=== PATIENT | female | born 1990 | race Hispanic/Latino ===

== ENCOUNTER 2019-10-26 00:50 | Inpatient (IN) | payer OTHER ==
[2019-10-28] MEDS ORDERED: Ringers Lactate 1,000 ML IV PRN (05:02)
[2019-10-28] MEDS ORDERED: METHYLERGONOVINE 0.2MG/ML AMP IM PRN (05:02)
[2019-10-28] MEDS ORDERED: PENICILLIN 5 MU in NA CHLORIDE 0.9% 100 ML IV ONE (05:02)
[2019-10-28] MEDS ORDERED: BUTORPHANOL 1 MG/ML INJ IV PRN (05:02)
[2019-10-28] MEDS ORDERED: MEPERIDINE HCL 25 MG/0.5 ML IV PRN (05:02)
[2019-10-28] MEDS ORDERED: PROMETHAZINE INJ 25 MG/ML AMP IM PRN (05:02)
[2019-10-28] MEDS ORDERED: CARBOPROST TROME 250 MCG/ML IM PRN (05:02)
[2019-10-28 05:25] VITALS: BMI 25.4
[2019-10-28 05:30] LABS: Urine Appearance CLEAR; Urine Bilirubin NEGATIVE (NEG); Urine Blood NEGATIVE (NEG); Urine Color YELLOW; Urine Glucose NEGATIVE (NEG); Urine Protein NEGATIVE (NEG); Urine Specific Gravity 1.015 (1.005-1.030)
[2019-10-28 05:31] LABS: Absolute Lymphocytes (CBC) 1.5 K/uL (0.7-4.9); Basophils % 0.3 % (0-1.3); Hematocrit 29.8 % (36.0-45.0); Lymphocytes % 19.6 % (15.3-44.8); MPV 7.3 fL (7.6-11.3); RBC Red Blood Cell Count 3.11 M/uL (3.86-4.86)
[2019-10-28 05:41] LABS: Urine Microscopic Reflex NO UMIC
[2019-10-28] MEDS ORDERED: OXYTOCIN/LR 20 UNIT/1,000 ML BAG IV SCH ×2 (06:00→15:00)
[2019-10-28] MEDS ORDERED: Ringers Lactate 1,000 ML IV SCH (06:00)
--- NOTE | 2019-10-28 09:00 | PREOPHP ---
Date of Admission: 10/28/2019 29-year-old 3, para 2, patient is at 39 weeks and 3 to 4 days. She is noted to be breech pre sentation earlier in the week but exam yesterday showed the baby had converted to vertex. It was dec ided to proceed with delivery as soon as possible before the baby will shift again. FHTs look normal and reactive. She is Rh positive, immune to Rubella. She has positive beta strep screen and will b e given penicillin during the labor, 1.5 cm this morning. Vertex well applied, -2 station. Rupture of membranes, clear fluid. Labor talk given. Patient will probably be requesting epidural later in the labor. PIEDAD/GLENDY Voice ID: [id number]
[2019-10-28] MEDS ORDERED: FENTANYL CITR 100 MCG/2 ML IV ONE (09:02)
[2019-10-28] MEDS ORDERED: ROPIVACAINE HCL 100 ML IV ONE (09:03)
[2019-10-28] MEDS ORDERED: ROPIVACAINE HCL 2 MG/ML 100ML IV ONE (09:05)
[2019-10-28] MEDS ORDERED: PENICILLIN 2.5 MU in NA CHLORIDE 0.9% 100 ML IV SCH (09:30)
[2019-10-28] MEDS ORDERED: LIDOCAINE 1% 20 ML MDV ONE (12:27)
[2019-10-28] MEDS ORDERED: BISACODYL 10 MG RECTAL SUPP PR PRN (14:28)
[2019-10-28] MEDS ORDERED: Oxycodone HCl/Acetaminophen 1 TAB TAB PO PRN ×2 (14:28)
[2019-10-28] MEDS ORDERED: DIPHENHYDRAMINE 25 MG TAB/CAP PO PRN (14:28)
[2019-10-28] MEDS ORDERED: DOCUSATE NA/SENNA CONC 1 TAB PO PRN (14:28)
[2019-10-28] MEDS ORDERED: ACETAMINOPHEN 500 MG TAB PO PRN (14:28)
--- NOTE | 2019-10-28 17:36 | PN ---
The patient is [place] very regularly. Baby looks good. She is now 5 cm, 80%, and 0 station. S he is being pre-hydrated. She is wanting epidural at this point. I think this is a good reasonable thing to do. Her blood pressures have been on the low side. We have already put on compression hose . She is being hydrated. Dr. Brumfield is anesthesiologist and of course, he will take this in considera tion as far as how much bolus to give her since we do not want to drop her blood pressure precipitous ly. Anticipate more rapid progress in the near future. PIEDAD/GLENDY Voice ID: [id number] Report ID: [id number]
--- NOTE | 2019-10-28 18:12 | PN ---
Patient has epidural in now, quite comfortable. She can still move her legs. She is now 7.5, almost 8 cm, 90% effaced, vertex, +1 station. Baby still looks good on the monitor. Her blood pressures adhikari ve been low, but have not dropped after the epidural. Anticipate delivery relatively soon. PIEDAD/GLENDY Voice ID: [id number] Report ID: [id number]
--- NOTE | 2019-10-28 20:42 | OP ---
Surgeon: Sher Berkowitz MD History: A 29-year-old 3, para 2, 39 weeks 2 days, had baby then breech, converted to vertex and decided to induce. She was 1.5 cm vertex, high in the pelvis, but well applied to the cervix th is morning, rupture of membranes, clear fluid. Patient had epidural anesthesia after she reached miriam roximately 4-5 cm, which gave excellent effect during remainder of Labor and Delivery. Second stage of 15 to 20 minutes, spontaneous vaginal delivery of an estimated 7-pound plus male . Apgars 9 and 9. No episiotomy. No laceration. Schultze delivery of the placenta, which was inspected and n oted be intact and normal. 350 mL or less blood loss. Rh positive, immune to Rubella. Beta strep p ositive. Received 3 doses of penicillin during her labor. Tolerated all procedures well. Final Diagnoses: Term intrauterine , previous breech converted to vertex, labor induction, vaginal delivery, epidural anesthesia, penicillin prophylaxis. PIEDAD/GLENDY Voice ID: [id number] Report ID: [id number]
[2019-10-28] MEDS: IBUPROFEN 600 MG TAB PO PRN (20:46)
[2019-10-28 22:43] LABS: RPR (Rapid Plasma Reagin) NON-REACT (NON-REACT)
[2019-10-29] MEDS ORDERED: Ringers Lactate 1,000 ML IV ONE (05:01)
[2019-10-29] MEDS: IBUPROFEN 600 MG TAB PO PRN (07:25)
--- NOTE | 2019-10-29 08:47 | DS ---
29-year-old 3, para 2, 39 weeks 2 days. Baby had been breech and then converted to vertex an d it was decided to proceed with induction. She was delivered of a 7-pound 10-ounce male , Apg ars 9 and 9. No episiotomy. No laceration. Schultze delivery of the placenta. Estimated blood los s 300 cc or less. Rh positive, immune to Rubella. Positive beta strep screen. Received 3 doses of penicillin prophylaxis. Post afebrile, ambulating and voiding. Lochia is normal. No post ep idural problems. Requests no analgesics on dismissal. She has not had Tdap immunization during her , says she will request it before she leaves. Full post talk given. Final Diagnoses: Intrauterine gestation, 39 weeks 2 to 3 days, conversion from breech to vertex, lab or induction, vaginal delivery, epidural anesthesia, penicillin prophylaxis, Tdap offered. PIEDAD/GLENDY Voice ID: [id number] Report ID: [id number]
[2019-10-29 12:09] VITALS: BP 90/53; TEMP 97.6
[2019-11-01 04:07] LABS: HBsAG Nonreactive (Nonreactive)
== END 2019-10-29 17:15 | disposition home or self-care (01) | DRG 807 ==
LOC: 2ND-WC 10-28 04:30
PROVIDERS: ADMIT Pediatrics; ATTEND Specialist
PROC: 10E0XZZ Delivery of Products of Conception, External Approach (ICD-10-PCS; principal; 2019-10-28)
PROC: 10907ZC Drainage of Amniotic Fluid, Therapeutic from Products of Conception, Via Natural or Artificial Opening (ICD-10-PCS; 2019-10-28)
PROC: 3E033VJ Introduction of Other Hormone into Peripheral Vein, Percutaneous Approach (ICD-10-PCS; 2019-10-28)
DX: O99.824 Streptococcus B carrier state complicating childbirth (principal); Z37.0 Single live birth; Z3A.39 39 weeks gestation of pregnancy
CPT/HCPCS: 36415; 81003; 85025; 86592; 86850; 86900; 86901; 87340; J2210; J2590; J2795; J3010; J7120